=== PATIENT | male | born 1940 | race Caucasian/White ===

== ENCOUNTER 2019-05-13 14:20 | Observation (INO) | payer OTHER ==
[~2019-05-13] VITALS: Ht 181.6 cm; Wt 68.2 kg
[~2019-05-13 14:20] MED LIST: DILTIAZEM 24HR120 M1 PO; FAMOTIDINE20 MG PO; TAMSULOSIN HCL0.4 MG PO; XARELTO20 MG PO
--- OUTSIDE RECORDS SUMMARY | 2019-05-13 14:23 | XMS REPORT | Summary of Care ---
Author Author Douglas Chou, Lora Roland Organization Unknown Address [facility] Phone Unavailable Care Team Providers Care Type Disk Quality Control Supervisor Name Role Phone YANNA Morris, MARIANA Muse Unavailable ARNULFO Morris, RYAN Unavailable Unavailable YANNA IRVING SD, MARIANA Funez Unavailable Unavailable Arnulfo IRVING, Ryan Unavailable Unavailable JUSTIN ANDREWS SD, GERI Unavailable Unavailable DOUGLAS IRVING SD, SPENCER JASSO Unavailable Unavailable Unavailable Unavailable Functional Status Name Dates Details Functional status health issues are not documented Status: Name Dates Details Cognitive status health issues are not documented Status: Problems Name Dates Details Decreased hearing of right ear (389.9, H91.91) Status: Active Visual changes (368.9, H53.9) Status: Active Ailyn infection (112.9, B37.9) Status: Active Tinea corporis (110.5, B35.4) Status: Active Effusion of right knee (719.06, M25.461) Status: Active Annual physical exam (V70.0, Z00.00) Status: Active Advanced care planning/counseling discussion (V65.49, Z71.89) Status: Active Age-related cognitive decline (294.9, R41.81) Status: Active Allergic rhinitis (477.9, J30.9) Status: Active Carotid artery stenosis (433.10, I65.29) Status: Active Chronic obstructive pulmonary disease (496, J44.9) Status: Active Colon polyps (211.3, K63.5) Status: Active Depressive disorder (311, F32.9) Status: Active Enlarged prostate without lower urinary tract symptoms (luts) (600.00, N40.0) Status: Active Hyperlipidemia (272.4, E78.5) Status: Active Pre-diabetes (790.29, R73.03) Status: Active PVD (peripheral vascular disease) (443.9, I73.9) Status: Active Skin rash (782.1, R21) Status: Active Tobacco abuse counseling (V65.42, Z71.6) Status: Active Vitamin B12 deficiency (266.2, E53.8) Status: Active Vitamin D deficiency (268.9, E55.9) Status: Active Essential (primary) hypertension (401.9, I10) Status: Active Paroxysmal atrial fibrillation (427.31, I48.0) Status: Active Anticoagulant long-term use (V58.61, Z79.01) Status: Active Need for immunization against influenza (V04.81, Z23) Status: Active Medications Name Dates Details Tamsulosin HCl - 0.4 MG Oral Capsule TAKE ONE CAPSULE BY MOUTH EVERY DAY Quantity: 90 MARIANA RAINES M.D. * Start : 05-Aug-2018 Active Xarelto 20 MG Oral Tablet TAKE 1 TABLET BY MOUTH AT BEDTIME * Quantity: 90 Refills: 3 RYAN POPE M.D. * Start : 13-Feb-2016 Active dilTIAZem HCl ER Coated Beads 120 MG Oral Capsule Extended Release 24 Hour TAKE ONE CAPSULE BY MOUTH EVERY DAY * Quantity: 30 Refills: 4 MARIANA RAINES M.D. * Start : 19-Feb-2016 Active Cyanocobalamin 1000 MCG/ML Injection Solution 1 ml IM every 2 months * Refills: 0 Active Rosuvastatin Calcium 5 MG Oral Tablet TAKE 1 TABLET BY MOUTH EVERYDAY AT BEDTIME * Quantity: 30 Refills: 5 MARIANA RAINES M.D. * Start : 08-Feb-2018 Active Vitamin B Complex TABS TAKE 1 TABLET DAILY. * Refills: 0 Active buPROPion HCl - 100 MG Oral Tablet TAKE 1 TABLET BY MOUTH EVERY DAY IN THE MORNING * Quantity: 90 Refills: 1 MARIANA RAINES M.D. * Start : 17-Dec-2018 Active Hydrocortisone 2.5 % External Lotion APPLY SPARINGLY TO AFFECTED AREA(S) TWICE DAILY * Quantity: 1 Refills: 3 MARIANA RAINES M.D. * Start : 19-Jan-2019 End : 19-May-2019 Active 118 ML Bottle Vitamin D3 25 MCG (1000 UT) Oral Tablet TAKE 1 TABLET DAILY * Refills: 0 Active Allergies and Adverse Reactions Name Dates Details Aspirin TABS (Allergy) Status: Denied Salicylates (Allergy) Status: Active Past Medical History Name Dates Details History of acute bronchitis (V12.69, Z87.09) Status: Resolved History of Acute upper respiratory infection (465.9, J06.9) Status: Resolved History of allergic rhinitis (V12.69, Z87.09) Status: Resolved History of Annual physical exam (V70.0, Z00.00) Status: Resolved History of Bladder spasm (596.89, N32.89) Status: Resolved History of Bleeding from right ear (388.69, H92.21) Status: Resolved History of carotid artery stenosis (V12.59, Z86.79) Status: Resolved History of cellulitis (V13.3, Z87.2) Status: Resolved History of cellulitis and abscess (V13.3, Z87.2) Status: Resolved History of Cervical neck pain with evidence of disc disease (722.91, M50.90) Status: Resolved 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, M47.812) Status: Resolved History of Chronic Obstructive Pulmonary Disease With Exacerbation (491.22) Status: Resolved History of Colon cancer screening (V76.51, Z12.11) Status: Resolved History of Counseling regarding advanced directives (V65.49, Z71.89) Status: Resolved History of dizziness (V13.89, Z87.898) Status: Resolved History of Elevated blood pressure reading without diagnosis of hypertension (796.2, R03.0) Status: Resolved History of History of removal of myah (V49.89, Z92.89) Status: Resolved History of Impaired fasting glucose (790.21, R73.01) Status: Resolved History of Lower urinary tract symptoms (LUTS) (788.99, R39.9) Status: Resolved History of Pain in both lower extremities (729.5, M79.604) Status: Resolved History of pneumococcal vaccination (V49.89, Z92.29) Status: Resolved History of Puncture wound of right lower leg, initial encounter (891.0, S81.831A) Status: Resolved History of Screening for abdominal aortic aneurysm (V81.2, Z13.6) Status: Resolved History of Screening for prostate cancer (V76.44, Z12.5) Status: Resolved History of seborrheic dermatitis (V13.3, Z87.2) Status: Resolved History of shortness of breath (V13.89, Z87.898) Status: Resolved History of SOB (shortness of breath) on exertion (786.05, R06.02) Status: Resolved History of Symptoms of upper respiratory infection (URI) (786.09, R09.89) Status: Resolved History of tinea cruris (V12.09, Z86.19) Status: Resolved History of Urethral trauma (867.0, S37.30XA) Status: Resolved History of Vitreous floaters, unspecified laterality (379.24, H43.399) Status: Resolved Procedures Procedure Dates Details History of Tonsillectomy With Adenoidectomy Completed History of Appendectomy Completed History of Hernia Repair Completed History of Back Surgery Completed History of Hip Surgery Completed Immunization Name Dates Details Pneumococcal polysaccharide vaccine, 23 valent on: 10-Oct-2009 Influenza Lot #: [id number] on: 14-Jun-2014 Fluzone INJ Lot #: [id number] on: 10-Apr-2015 Prevnar 13 Intramuscular Suspension Lot #: [id number] on: 10-Apr-2015 Fluzone INJ Lot #: [id number] on: 23-Apr-2016 Pneumococcal polysaccharide vaccine, 23 valent Lot #: [id number] on: 23-Apr-2016 Zoster (Zostavax) on: 26-Mar-2017 Influenza, high dose seasonal, preservative-free Lot #: [id number] on: 26-Mar-2017 Influenza, seasonal, injectable on: 03-May-2018 Shingrix 50 MCG Intramuscular Suspension Reconstituted on: 21-Jan-2019 Tdap on: 21-Jan-2019 Prevnar 13 Intramuscular Suspension on: 23-Feb-2019 Shingrix 50 MCG Intramuscular Suspension Reconstituted on: 29-Mar-2019 Fluzone Quadrivalent 0.5 ML Intramuscular Suspension Prefilled Syringe Lot #: [id number] on: 05-May-2019 Family History Name Dates Details Family history of Hypertension (V17.49) Status: Active Family history of Coronary Artery Disease (V17.49) Status: Active Family history of Stroke Syndrome (V17.1) Status: Active Name Dates Details Family history of Hypertension (V17.49) Status: Active Family history of Coronary Artery Disease (V17.49) Status: Active Family history of Leukemia (V16.6) Status: Active Family history of Stroke Syndrome (V17.1) Status: Active Family history of Prostate Cancer (V16.42) Status: Active Name Dates Details Family history of Prostate Cancer (V16.42) Status: Active Social History Name Dates Details - Status: Name Dates Details Former smoker Former smoker Smoker. current status unknown Current every day smoker Vital Signs Date Test Result Details [id number] BP Systolic 97 mm[Hg] Status: Comments: Location: LUE; Position: Sitting BP Diastolic 59 mm[Hg] Status: Comments: Location: LUE; Position: Sitting Height 67 in Status: Weight 152.7 lb Status: Body Mass Index Calculated 23.92 kg/m2 Status: Body Surface Area Calculated 1.8 m2 Status: Temperature 97.9 f Status: Comments: Method: Oral Heart Rate 93 /min Status: Respiration Rate 16 /min Status: Results Date Description Value Details Results not documented Plan of Care Name Dates Details Planned Observations Planned Goals not documented Planned Encounters Appointment; RYAN POPE M.D. On: 06-Jul-2019 11:40 Appointment; MARIANA RAINES M.D. On: 08-Aug-2019 11:00 Interventions Provided Follow-ups/Referrals* Follow-up visit in 1 month; Done: 05 May 2019 Medications/Immunizations Administered* Fluzone Quadrivalent 0.5 ML Intramuscular Suspension Prefilled Syringe; Done: 05 May 2019 Plan* Continue current medications same. RTC in three months. Instructions Name Dates Details Instructions not documented Encounters Appointment; RYAN POPE M.D. Encounter Diagnosis: Problem not documented On: 06-May-2017 9:00 Appointment; MARIANA RAINES M.D. Encounter Diagnosis: Problem not documented On: 20-May-2017 14:15 Appointment; RYAN POPE M.D. Encounter Diagnosis: Problem not documented On: 05-Aug-2017 10:40 Appointment; MARIANA RAINES M.D. Encounter Diagnosis: Problem not documented On: 25-Aug-2017 14:15 Appointment; NICK RAMIREZ M.D. Encounter Diagnosis: Problem not documented On: 23-Nov-2017 13:45 Appointment; MARIANA RAINES M.D. Encounter Diagnosis: Problem not documented On: 24-Nov-2017 14:30 Appointment; MARIANA RAINES M.D. Encounter Diagnosis: Problem not documented On: 26-Nov-2017 9:45 Appointment; MARIANA RAINES M.D. Encounter Diagnosis: Problem not documented On: 03-Dec-2017 11:30 Appointment; MARIANA RAINES M.D. Encounter Diagnosis: Problem not documented On: 09-Dec-2017 15:00 Appointment; MARIANA RAINES M.D. Encounter Diagnosis: Problem not documented On: 16-Dec-2017 11:00 Appointment; MARIANA RAINES M.D. Encounter Diagnosis: Problem not documented On: 26-Jan-2018 14:15 Appointment; NICHELLE CARPENTER NP Encounter Diagnosis: Problem not documented On: 27-Jan-2018 9:15 Appointment; NICHELLE CARPENTER NP Encounter Diagnosis: Problem not documented On: 01-Feb-2018 12:30 Appointment; RYAN POPE M.D. Encounter Diagnosis: Problem not documented On: 08-Feb-2018 9:40 Appointment; MARIANA RAINES M.D. Encounter Diagnosis: Problem not documented On: 23-Feb-2018 15:30 Appointment; MARIANA RAINES M.D. Encounter Diagnosis: Problem not documented On: 25-Feb-2018 9:45 Appointment; MARIANA RAINES M.D. Encounter Diagnosis: Problem not documented On: 24-Mar-2018 14:15 Appointment; MARIANA RAINES M.D. Encounter Diagnosis: Problem not documented On: 10-May-2018 16:00 Appointment; MARIANA RAINES M.D. Encounter Diagnosis: Problem not documented On: 10-May-2018 16:00 Appointment; MARIANA RAINES M.D. Encounter Diagnosis: Problem not documented On: 20-May-2018 14:15 Appointment; RYAN POPE M.D. Encounter Diagnosis: Problem not documented On: 14-Jun-2018 11:40 Appointment; [facility] Encounter Diagnosis: Problem not documented On: 12-Jul-2018 10:00 Appointment; [facility] Encounter Diagnosis: Problem not documented On: 12-Jul-2018 11:00 Appointment; RYAN POPE M.D. Encounter Diagnosis: Problem not documented On: 14-Jul-2018 10:00 Appointment; MARIANA RAINES M.D. Encounter Diagnosis: Problem not documented On: 20-Jul-2018 15:15 Appointment; SPENCER LONG M.D. Encounter Diagnosis: Problem not documented On: 27-Aug-2018 11:30 Appointment; MARIANA RAINES M.D. Encounter Diagnosis: Problem not documented On: 09-Sep-2018 14:45 Appointment; MARIANA RAINES M.D. Encounter Diagnosis: Problem not documented On: 19-Oct-2018 15:15 Appointment; RYAN POPE M.D. Encounter Diagnosis: Problem not documented On: 29-Dec-2018 11:20 Appointment; MARIANA RAINES M.D. Encounter Diagnosis: Problem not documented On: 19-Jan-2019 14:30 Appointment; MARIANA RAINES M.D. Encounter Diagnosis: Problem not documented On: 05-May-2019 15:30
[2019-05-13 14:58] LABS: BASOPHILS # (AUTO) 0.1 (0.0-0.1); BASOPHILS % 0.5 % (0.0-1.0); EOSINOPHILS # (AUTO) 0.6 (0.0-0.4); EOSINOPHILS % 4.6 % (0.0-6.0); HEMATOCRIT 48.7 % (38.2-49.6); HEMOGLOBIN 16.4 g/dL (14.0-18.0); LYMPHOCYTES # (AUTO) 1.7 (1.0-3.2); LYMPHOCYTES % 13.8 % (18.0-39.1); MEAN CORPUSCULAR HEMOGLOBIN 31.9 pg (28-32); MEAN CORPUSCULAR HGB CONC 33.7 g/dL (31-35); MEAN CORPUSCULAR VOLUME 94.7 fL (81-99); NEUTROPHILS # (AUTO) 8.9 (2.1-6.9); NEUTROPHILS % 72.5 % (38.7-80.0); PLATELET COUNT 201 x10e3/uL (140-360); RED BLOOD COUNT 5.14 x10e6/uL (4.3-5.7); RED CELL DISTRIBUTION WIDTH 13.1 % (11.7-14.4)
[2019-05-13 15:08] LABS: INR 0.95; PROTHROMBIN TIME 13.2 seconds (11.9-14.5)
[2019-05-13 15:09] LABS: PARTIAL THROMBOPLASTIN TIME 33.2 seconds (23.8-35.5)
[2019-05-13 15:19] LABS: ALANINE AMINOTRANSFERASE 16 IU/L (0-55); ALBUMIN/GLOBULIN RATIO 1.3 (0.8-2.0); ALKALINE PHOSPHATASE 101 IU/L (40-150); ANION GAP 16.6 mmol/L (8-16); BLOOD UREA NITROGEN 12 mg/dL (7-26); BUN/CREATININE RATIO 11 (6-25); CALCIUM 9.8 mg/dL (8.4-10.2); CARBON DIOXIDE 25 mmol/L (22-29); CHLORIDE 99 mmol/L (98-107); CREATINE KINASE 158 IU/L (30-200); CREATININE, SERUM 1.09 mg/dL (0.72-1.25); EST GLOMERULAR FILTRATION RATE > 60 ML/MIN (60-); GLUCOSE 96 mg/dL (74-118); MAGNESIUM 1.9 MG/DL (1.3-2.1); POTASSIUM 3.6 mmol/L (3.5-5.1); SODIUM 137 mmol/L (136-145)
[2019-05-13 16:02] LABS: BILIRUBIN,URINE NEGATIVE (NEGATIVE); CLARITY,URINE SL CLOUDY (CLEAR); COLOR,URINE YELLOW (YELLOW); KETONES,URINE 1+ (NEGATIVE); LEUKOCYTE ESTERASE ,URINE NEGATIVE (NEGATIVE); NITRITE,URINE NEGATIVE (NEGATIVE); PROTEIN,URINE DIPSTICK NEGATIVE (NEGATIVE); URINE UROBILINOGEN 0.2 mg/dL (0.2 - 1)
[2019-05-13 16:15] LABS: BACTERIA,URINE FEW /HPF; RBC,URINE 0-5 /HPF (0-5)
--- NOTE | 2019-05-13 19:14 | Diagnostic Imaging Report ---
EXAMINATION: CT of the abdomen and pelvis with contrast. TECHNIQUE: Helical CT images of the abdomen and pelvis were performed from the lung bases to the lesser trochanters after the intravenous administration of 100 cc of Omnipaque 300 and the oral administration of none. Coronal and sagittal reformatted images were obtained.Dose modulation, iterative reconstruction, and/or weight based adjustment of the mA/kV was utilized to reduce the radiation dose to as low as reasonably achievable COMPARISON: None. CLINICAL HISTORY:Abdominal pain DISCUSSION: ABDOMEN/PELVIS: LOWER THORAX:Unremarkable. HEPATOBILIARY: No focal hepatic lesions. No intra-or extrahepatic biliary ductal dilation. Small gallstones. SPLEEN: No splenomegaly. PANCREAS: No focal masses or ductal dilatation. ADRENALS: No adrenal nodules. KIDNEYS/URETERS: No hydronephrosis, stones, or solid mass lesions. PELVIC ORGANS/BLADDER: The bladder is normal. PERITONEUM/RETROPERITONEUM: No free air or fluid. LYMPH NODES: No intra-abdominal, retroperitoneal, pelvic or inguinal lymphadenopathy. VESSELS: The celiac trunk,superior and inferior mesenteric and bilateral renal arteries are patent The portal, superior mesenteric and splenic veins are patent. GI TRACT: No distention or wall thickening. BONES AND SOFT TISSUE: No bony destructive lesions. Multilevel degenerative disc disease L5-S1. Right hip arthroplasty. IMPRESSION: No acute CT finding. Small gallstones. Signed by: Dr. Aamir Romero M.D. on 05/13/2019 7:11 PM
[2019-05-13] MEDS ORDERED: DEXTROSE 50% SYRINGE 50 ML IV PRN (20:00)
--- OUTSIDE RECORDS SUMMARY | 2019-05-13 20:08 | XMS REPORT ---
Author [facility] Address Unknown Phone Unavailable Care Team Providers Care P D Driver Name Role Phone Simon DEVLIN Unavailable Unavailable Problems This patient has no known problems. Allergies, Adverse Reactions, Alerts This patient has no known allergies or adverse reactions. Medications This patient has no known medications. Results Test Description Test Time Test Comments Text Results Atomic Results Result Comments CT ABDOMEN/PELVIS W 2019-05-13 19:04:00 [facility] [address] [address] Patient Name: MOON HERNANDEZ MR #: [id number] : 1940 Age/Sex: 78/M Req #: [id number] [facility] Physician: Ordered by: MEDARDO ALBRIGHT SENIOR STRATEGY ANALYST Report #: [id number] Location: ER Room/Bed: Procedure: [id number] CT/CT ABDOMEN/PELVIS W Exam Date: 05/13/19 Exam Time: 1702 REPORT STATUS: Signed EXAMINATION: CT of the abdomen and pelvis with contrast . TECHNIQUE: Helical CT images of the abdomen and pelvis were performed from the lung bases to the lesser trochanters after the intravenous administration of 100 cc of Omnipaque 300 and the oral administration of none. Coronal and sagittal reformatted images were obtained.Dose modulation, iterative reconstruction, and/or weight based adjustment of the mA/kV was utilized to reduce the radiation dose to as low as reasonably achievable COMPARISON: None. CLINICAL HISTORY:Abdominal pain DISCUSSION: ABDOMEN/PELVIS: LOWER THORAX:Unremarkable. HEPATOBILIARY: No focal hepatic lesions. No intra-or extrahepatic biliary ductal dilation. Small gallstones. SPLEEN: No splenomegaly. PANCREAS: No focal masses or ductal dilatation. ADRENALS: No adrenal nodules. KIDNEYS/URETERS: No hydronephrosis, stones, or solid mass lesions. PELVIC ORGANS/BLADDER: The bladder is normal. PERITONEUM/RETROPERITONEUM: No free air or fluid. LYMPH NODES: No intra-abdominal, retroperitoneal, pelvic or inguinal lymphadenopathy. VESSELS: The celiac trunk,superior and inferior mesenteric and bilateral renal arteries are patent The portal, superior mesenteric and splenic veins are patent. GI TRACT: No distention or wall thickening. BONES AND SOFT TISSUE: No bony destructive lesions. Multilevel degenerative disc disease L5-S1. Right hip arthroplasty. IMPRESSION: No acute CT finding. Small gallstones. Signed by: Dr. Alisa Hackett M.D. on 05/13/2019 7:11 PM Dictated By: ALISA HACKETT MD 10 Transcribed By: BRYAN on 05/13/191910 COPY TO: MEDARDO ALBRIGHT NP
[2019-05-13] MEDS ORDERED: BUPROPION HCL100 MG PO (20:41)
[2019-05-13] MEDS ORDERED: INSULIN REGULAR, HUMAN 100 UNIT/1 ML 3ML VIAL SQ SCH (21:00)
[2019-05-13 22:01] VITALS: BP 132/69
[2019-05-13] MEDS ORDERED: SODIUM CHLORIDE 0.9% 50ML 50 ML ONE (22:21)
[2019-05-13] MEDS ORDERED: IOPAMIDOL 370 MG/ML 200 ML INFUS..BTL INJ ONE (22:21)
[2019-05-13 22:30] VITALS: BP 151/78
[2019-05-14] VITALS (7 sets, daily range): BP systolic 100–151; BP diastolic 62–78
[2019-05-14 06:09] LABS: BASOPHILS % 0.4 % (0.0-1.0); EOSINOPHILS # (AUTO) 0.5 (0.0-0.4); EOSINOPHILS % 4.5 % (0.0-6.0); HEMATOCRIT 47.7 % (38.2-49.6); HEMOGLOBIN 15.8 g/dL (14.0-18.0); LYMPHOCYTES # (AUTO) 1.5 (1.0-3.2); MEAN CORPUSCULAR HEMOGLOBIN 31.4 pg (28-32); MEAN CORPUSCULAR HGB CONC 33.1 g/dL (31-35); MEAN CORPUSCULAR VOLUME 94.8 fL (81-99); MONOCYTES % 9.6 % (4.4-11.3); NEUTROPHILS # (AUTO) 7.6 (2.1-6.9); PLATELET COUNT 185 x10e3/uL (140-360); RED BLOOD COUNT 5.03 x10e6/uL (4.3-5.7); RED CELL DISTRIBUTION WIDTH 13.2 % (11.7-14.4)
[2019-05-14] MEDS: TAMSULOSIN HCL 0.4 MG CAP PO SCH (11:13)
[2019-05-14] MEDS: FAMOTIDINE 20 MG TAB PO SCH ×2 (11:13→17:26)
[2019-05-14] MEDS: BUPROPION HCL 100 MG TAB PO SCH (11:13)
[2019-05-14] MEDS: DILTIAZEM HCL ER 120 MG CAP PO SCH (11:13)
--- NOTE | 2019-05-14 15:41 | History and Physical ---
PRIMARY CARE PHYSICIAN: Michael Sterling MD. CHIEF COMPLAINT: Rectal bleed. HISTORY OF PRESENT ILLNESS: The patient is an 78-year-old male with rectal bleed, sent from Dr. Sterling's office to the emergency room for an evaluation. The patient does have fecal for occult blood positive. He is on Xarelto for atrial fibrillation. The patient could not recall any endoscopy done in the past. He is a poor historian. His hemoglobin and hematocrit have not dropped at low. His previously was 16, now is 15.8. The patient is otherwise stable. No gross rectal bleed, but his stool for occult blood is positive. PAST MEDICAL HISTORY: Atrial fibrillation on anticoagulant therapy, hypertension, enlarged prostate, reflux, and anxiety disorder. PAST SURGICAL HISTORY: Noncontributory. SOCIAL HISTORY: He is a smoker. No recreational drug use. ALLERGIES: ASPIRIN AND BISMUTH SUBSALICYLATE. HOME MEDICATIONS: Bupropion, diltiazem, Pepcid, Xarelto, and Flomax. PHYSICAL EXAMINATION: VITAL SIGNS: Temperature is 98, blood pressure 151/78, pulse rate 79, and respirations 18. GENERAL: The patient is not in acute distress. HEENT: Normocephalic and atraumatic. Pupils reactive. Anicteric. NECK: Supple grossly. PULMONARY: Clear. CARDIOVASCULAR: Atrial fibrillation, rate controlled. ABDOMEN: Soft, nontender, non-distention. EXTREMITIES: No cyanosis or edema. NEUROLOGIC: No focal deficit. LABORATORY DATA: Sodium is 137, potassium 3.6, chloride 99, bicarb 25, BUN 12, creatinine 1.1, and glucose 96. WBC is 10.6, hemoglobin 15.8, hematocrit 47.7, and platelets is 185. INR 0.95 and PTT 33.2. Liver enzyme unremarkable. IMPRESSION: 1. Rectal bleed with stool for fecal occult blood positive. 2. Anticoagulant therapy, Xarelto for atrial fibrillation. PLAN: 1. Hold off on the Xarelto. We will consult Gastroenterology. We will follow up on recommendation. 2. Repeat CBC in the morning. 3. We will resume home medication except for Xarelto. MD TAWNYA Garcia/MODL /[id number]
--- NOTE | 2019-05-14 22:18 | Consultation ---
DATE OF CONSULTATION: 05/14/2019 REASON FOR CONSULTATION: Rectal bleeding. HISTORY OF PRESENT ILLNESS: Mr. Zaldivar is a pleasant 78-year-old man with the fissure apparently, atrial fibrillation, and apparently some degree of constipation, who was admitted apparently with complaints of hematochezia. He is on Xarelto. Has never had a colonoscopy. Since admission, no further bleeding has been noted. Hemoglobin has been normal. PAST MEDICAL HISTORY: As in HPI. FAMILY HISTORY: Noncontributory. SOCIAL HISTORY: No smoking, no drinking. REVIEW OF SYSTEMS: As in HPI. ALLERGIES: PLEASE REFER TO THE CHART. PHYSICAL EXAMINATION: VITAL SIGNS: Well within normal limits. GENERAL: Pleasant elderly male, looking younger in no distress. HEENT: Unremarkable. NECK: Supple. LUNGS: Clear. HEART: Regular rate and rhythm. ABDOMEN: Soft and nontender. RECTAL: Deferred. LABORATORY DATA: Look in the chart. ASSESSMENT: Elderly male on chronic Xarelto for atrial fibrillation, admitted with hematochezia. Hemoglobin has remained stable. Suspect rectal bleeding. PLAN: 1. Full liquid diet. 2. Colonoscopy on Thursday, 05/16. Lee Bianchi MD FES/MODL /[id number]
[2019-05-15] VITALS (7 sets, daily range): BP systolic 107–137; BP diastolic 61–86
[2019-05-15 05:59] LABS: BASOPHILS # (AUTO) 0.1 (0.0-0.1); BASOPHILS % 0.5 % (0.0-1.0); EOSINOPHILS # (AUTO) 0.7 (0.0-0.4); EOSINOPHILS % 6.7 % (0.0-6.0); HEMATOCRIT 47.6 % (38.2-49.6); HEMOGLOBIN 15.9 g/dL (14.0-18.0); LYMPHOCYTES # (AUTO) 1.6 (1.0-3.2); MEAN CORPUSCULAR HEMOGLOBIN 31.6 pg (28-32); MEAN CORPUSCULAR HGB CONC 33.4 g/dL (31-35); MEAN CORPUSCULAR VOLUME 94.6 fL (81-99); MONOCYTES # (AUTO) 1.2 (0.2-0.8); MONOCYTES % 11.5 % (4.4-11.3); NEUTROPHILS # (AUTO) 6.4 (2.1-6.9); NEUTROPHILS % 64.6 % (38.7-80.0); PLATELET COUNT 202 x10e3/uL (140-360); RED BLOOD COUNT 5.03 x10e6/uL (4.3-5.7); RED CELL DISTRIBUTION WIDTH 13.2 % (11.7-14.4)
[2019-05-15] MEDS: TAMSULOSIN HCL 0.4 MG CAP PO SCH (09:17)
[2019-05-15] MEDS: DILTIAZEM HCL ER 120 MG CAP PO SCH (09:17)
[2019-05-15] MEDS: FAMOTIDINE 20 MG TAB PO SCH ×2 (09:18→17:04)
[2019-05-15] MEDS: BUPROPION HCL 100 MG TAB PO SCH (09:18)
[2019-05-15] MEDS ORDERED: PEG (High)/E-LYTE SOLN 4,000 ML BTL PO ONE (16:00)
[2019-05-16] VITALS: BP 125/66
[2019-05-16 04:00] VITALS: BP 130/70
[2019-05-16 08:48] VITALS: BP 133/77
[2019-05-16 09:20] VITALS: BP 125/68
[2019-05-16] MEDS: BUPROPION HCL 100 MG TAB PO SCH (09:35)
[2019-05-16] MEDS: FAMOTIDINE 20 MG TAB PO SCH (09:35)
[2019-05-16] MEDS: TAMSULOSIN HCL 0.4 MG CAP PO SCH (09:35)
[2019-05-16] MEDS: DILTIAZEM HCL ER 120 MG CAP PO SCH (09:35)
[2019-05-16 12:04] VITALS: BP 101/50
[2019-05-16 15:55] VITALS: BP 140/60
[2019-05-16] MEDS ORDERED: PROPOFOL IV EMULSION 10 MG/ML 20 ML VIAL ONE (18:11)
[2019-05-16] MEDS ORDERED: LIDOCAINE HCL 2% LOCAL INJ 5 ML SDV VIAL INJ ONE (18:11)
[2019-05-16] MEDS ORDERED: FENTANYL CITRATE/PF 100MCG/2 ML INJ ONE (18:11)
== END 2019-05-16 16:45 | disposition home or self-care (01) ==
LOC: ER 14:20 → ERHOLD 20:05 → MED/SURG 22:18
PROVIDERS: ADMIT Internal Medicine; ATTEND Internal Medicine
DX: K92.1 Melena (principal); I48.91 Unspecified atrial fibrillation; Z79.01 Long term (current) use of anticoagulants; I10 Essential (primary) hypertension; F41.9 Anxiety disorder, unspecified; K21.9 Gastro-esophageal reflux disease without esophagitis; N40.0 Benign prostatic hyperplasia without lower urinary tract symptoms; R41.81 Age-related cognitive decline; J30.9 Allergic rhinitis, unspecified; J44.9 Chronic obstructive pulmonary disease, unspecified; H91.91 Unspecified hearing loss, right ear; E78.5 Hyperlipidemia, unspecified; I48.0 Paroxysmal atrial fibrillation; R73.03 Prediabetes; I73.9 Peripheral vascular disease, unspecified; Z87.891 Personal history of nicotine dependence; Z11.3 Encounter for screening for infections with a predominantly sexual mode of transmission; K63.5 Polyp of colon; D12.7 Benign neoplasm of rectosigmoid junction
CPT/HCPCS: 36415 ×3; 45380; 74177; 80053; 81001; 82270; 82550; 82553; 82948 ×2; 83605; 83735; 84484; 85025 ×3; 85610; 85730; 86850; 86900; 87086; 88305; 93005; 99284; G0378 ×4; J2001; J2704; J3010; Q9967